=== PATIENT | male | born 1955 | race Caucasian/White ===

== ENCOUNTER 2018-09-27 08:49 | Inpatient (IN) | payer MEDICARE ==
[~2018-09-27] VITALS: Ht 175.3 cm; Wt 120.2 kg
[~2018-09-27 08:49] MED LIST: HYDROCODON OR; NEXIUM40 M1 OR; OXYCODONE15 MG OR; SOMA350 MG OR
[2018-09-27 10:09] LABS: HEMATOCRIT 36.9 % (39.0-50.0); HEMOGLOBIN 12.2 g/dl (14.0-18.0); IMMATURE GRANULOCYTES 0.4 % (0.0-5.0); MEAN CELL VOLUME 103.1 fL CALC (80.0-100.0); MEAN CORPUSCULAR HGB 34.1 pG CALC (26.0-32.0); MEAN CORPUSCULAR HGB CONC 33.1 g/L CALC (32.0-36.0); NEUT# 7.1 thou/uL (1.82-7.42); RED BLOOD COUNT 3.58 mill/uL (4.70-6.10); RED CELL DISTRI WIDTH 13.2 % (11.5-15.5)
[2018-09-27] MEDS ORDERED: SYNTHROID75 MCG PO (10:12)
[2018-09-27] MEDS ORDERED: OXYCONTIN10 MG PO (10:12)
[2018-09-27] MEDS ORDERED: DEXILANT60 MG PO (10:13)
[2018-09-27] MEDS ORDERED: [UNRECOGNIZED DRUG - OTHER] PO (10:13)
[2018-09-27] MEDS ORDERED: CRESTOR5 M1 PO (10:13)
[2018-09-27] MEDS ORDERED: PROAIR HFA108 MCG/AC IN (10:14)
[2018-09-27] MEDS ORDERED: ISOSORB DIN30 MG PO (10:16)
[2018-09-27 10:21] LABS: ANION GAP 12 (6-22 (CALC)); BUN 14 mg/dL (8-23); BUN/CREATININE RATIO 17 (12-20 (CALC)); CARBON DIOXIDE 32 mmol/l (22-30); CHLORIDE 95 mmol/l (95-108); CREATININE 0.8 mg/dL (0.7-1.3); GFR > 60 ML/MIN (>=60 (CALC)); GFR FOR AFR.AMER. > 60 ML/MIN (>=60 (CALC)); POTASSIUM 4.2 mmol/l (3.5-5.1); SODIUM 135 mmol/l (137-146)
[2018-09-27 12:31] VITALS: BP 143/93
[2018-09-27 15:35] VITALS: BP 125/87
[2018-09-27 15:51] LABS: URINE BILIRUBIN - DIPSTICK NEGATIVE (NEGATIVE); URINE BLOOD DIPSTICK NEGATIVE (NEGATIVE); URINE COLOR YELLOW; URINE GLUCOSE - DIPSTICK NEGATIVE (NEGATIVE); URINE KETONE NEGATIVE (NEGATIVE); URINE LEUK ESTERASE NEGATIVE (NEGATIVE); URINE NITRITE - DIPSTICK NEGATIVE (Negative); URINE PH 5.5 (4.5-8.0); URINE PROTEIN - DIPSTICK NEGATIVE (NEG-TRACE); URINE UROBILINOGEN - DIPSTICK 0.2 E.U./dL (0.2)
[2018-09-27 16:05] LABS: URINE CLARITY CLEAR
[2018-09-27 20:00] VITALS: BP 117/76
[2018-09-27 23:59] VITALS: BP 127/64
[2018-09-28] VITALS (7 sets, daily range): BP systolic 99–136; BP diastolic 61–90
[2018-09-29 04:14] VITALS: BP 123/69
[2018-09-29 05:29] LABS: HEMATOCRIT 37.4 % (39.0-50.0); HEMOGLOBIN 12.2 g/dl (14.0-18.0); IMMATURE GRANULOCYTES 0.8 % (0.0-5.0); MEAN CELL VOLUME 105.1 fL CALC (80.0-100.0); MEAN CORPUSCULAR HGB 34.3 pG CALC (26.0-32.0); MEAN CORPUSCULAR HGB CONC 32.6 g/L CALC (32.0-36.0); NEUT# 14.64 thou/uL (1.82-7.42); RED BLOOD COUNT 3.56 mill/uL (4.70-6.10); RED CELL DISTRI WIDTH 13.7 % (11.5-15.5)
[2018-09-29 05:39] LABS: ALBUMIN 3.6 g/dL (3.2-5.0); ALKALINE PHOSPHATASE 106 u/l (38-126); ANION GAP 16 (6-22 (CALC)); BILIRUBIN, TOTAL 0.4 mg/dL (0.0-1.4); BUN 24 mg/dL (8-23); BUN/CREATININE RATIO 25 (12-20 (CALC)); CARBON DIOXIDE 29 mmol/l (22-30); CHLORIDE 99 mmol/l (95-108); GFR > 60 ML/MIN (>=60 (CALC)); GFR FOR AFR.AMER. > 60 ML/MIN (>=60 (CALC)); MAGNESIUM 2.1 mg/dL (1.6-2.3); POTASSIUM 4.8 mmol/l (3.5-5.1); SGOT/AST 31 u/l (19-48); SODIUM 139 mmol/l (137-146); TOTAL PROTEIN 7.3 g/dL (6.3-8.2)
[2018-09-29 08:00] VITALS: BP 134/69
[2018-09-29 11:30] VITALS: BP 120/72
[2018-09-29 15:47] VITALS: BP 136/65
[2018-09-29 20:03] VITALS: BP 124/63
[2018-09-30 00:13] VITALS: BP 140/76
[2018-09-30 05:22] VITALS: BP 119/65
[2018-09-30 05:43] LABS: HEMATOCRIT 36.9 % (39.0-50.0); HEMOGLOBIN 11.8 g/dl (14.0-18.0); IMMATURE GRANULOCYTES 0.9 % (0.0-5.0); MEAN CELL VOLUME 105.7 fL CALC (80.0-100.0); MEAN CORPUSCULAR HGB 33.8 pG CALC (26.0-32.0); NEUT# 10.79 thou/uL (1.82-7.42); RED BLOOD COUNT 3.49 mill/uL (4.70-6.10); RED CELL DISTRI WIDTH 13.7 % (11.5-15.5)
[2018-09-30 06:01] LABS: ALBUMIN 3.4 g/dL (3.2-5.0); ALKALINE PHOSPHATASE 98 u/l (38-126); ANION GAP 14 (6-22 (CALC)); BILIRUBIN, TOTAL 0.5 mg/dL (0.0-1.4); BUN 21 mg/dL (8-23); BUN/CREATININE RATIO 27 (12-20 (CALC)); CARBON DIOXIDE 31 mmol/l (22-30); CHLORIDE 98 mmol/l (95-108); CREATININE 0.8 mg/dL (0.7-1.3); GFR > 60 ML/MIN (>=60 (CALC)); GFR FOR AFR.AMER. > 60 ML/MIN (>=60 (CALC)); MAGNESIUM 2.2 mg/dL (1.6-2.3); POTASSIUM 5.1 mmol/l (3.5-5.1); SGOT/AST 41 u/l (19-48); SODIUM 138 mmol/l (137-146)
[2018-09-30 08:06] VITALS: BP 140/85
[2018-09-30 11:30] VITALS: BP 103/60
[2018-09-30 15:15] VITALS: BP 107/78
[2018-09-30 19:40] VITALS: BP 127/75
[2018-10-01 00:26] VITALS: BP 114/69
[2018-10-01 04:42] VITALS: BP 129/75
[2018-10-01 05:42] LABS: HEMATOCRIT 37.2 % (39.0-50.0); HEMOGLOBIN 12.3 g/dl (14.0-18.0); IMMATURE GRANULOCYTES 1.3 % (0.0-5.0); MEAN CELL VOLUME 104.2 fL CALC (80.0-100.0); MEAN CORPUSCULAR HGB 34.5 pG CALC (26.0-32.0); MEAN CORPUSCULAR HGB CONC 33.1 g/L CALC (32.0-36.0); NEUT# 9.31 thou/uL (1.82-7.42); RED BLOOD COUNT 3.57 mill/uL (4.70-6.10); RED CELL DISTRI WIDTH 13.6 % (11.5-15.5)
[2018-10-01 05:59] LABS: ALBUMIN 3.4 g/dL (3.2-5.0); ALKALINE PHOSPHATASE 99 u/l (38-126); ANION GAP 14 (6-22 (CALC)); BILIRUBIN, TOTAL 0.5 mg/dL (0.0-1.4); BUN 22 mg/dL (8-23); BUN/CREATININE RATIO 26 (12-20 (CALC)); CARBON DIOXIDE 31 mmol/l (22-30); CHLORIDE 97 mmol/l (95-108); CREATININE 0.8 mg/dL (0.7-1.3); GFR > 60 ML/MIN (>=60 (CALC)); GFR FOR AFR.AMER. > 60 ML/MIN (>=60 (CALC)); MAGNESIUM 2.4 mg/dL (1.6-2.3); POTASSIUM 5.1 mmol/l (3.5-5.1); SGOT/AST 40 u/l (19-48); SODIUM 137 mmol/l (137-146); TOTAL PROTEIN 6.9 g/dL (6.3-8.2)
[2018-10-01 07:39] VITALS: BP 134/80
[2018-10-01 11:35] VITALS: BP 127/77
[2018-10-01 16:12] VITALS: BP 133/79
[2018-10-01 19:20] VITALS: BP 144/90
[2018-10-02 00:30] VITALS: BP 119/62
[2018-10-02 04:35] VITALS: BP 123/72
[2018-10-02 05:41] LABS: HEMATOCRIT 37.4 % (39.0-50.0); HEMOGLOBIN 12.4 g/dl (14.0-18.0); IMMATURE GRANULOCYTES 1.6 % (0.0-5.0); MEAN CELL VOLUME 103.6 fL CALC (80.0-100.0); MEAN CORPUSCULAR HGB 34.3 pG CALC (26.0-32.0); MEAN CORPUSCULAR HGB CONC 33.2 g/L CALC (32.0-36.0); NEUT# 8.38 thou/uL (1.82-7.42); RED BLOOD COUNT 3.61 mill/uL (4.70-6.10); RED CELL DISTRI WIDTH 13.8 % (11.5-15.5)
[2018-10-02 06:37] LABS: ALBUMIN 3.3 g/dL (3.2-5.0); ALKALINE PHOSPHATASE 91 u/l (38-126); ANION GAP 11 (6-22 (CALC)); BILIRUBIN, TOTAL 0.5 mg/dL (0.0-1.4); BUN 23 mg/dL (8-23); BUN/CREATININE RATIO 25 (12-20 (CALC)); CARBON DIOXIDE 34 mmol/l (22-30); CHLORIDE 96 mmol/l (95-108); CREATININE 0.9 mg/dL (0.7-1.3); GFR > 60 ML/MIN (>=60 (CALC)); GFR FOR AFR.AMER. > 60 ML/MIN (>=60 (CALC)); MAGNESIUM 2.4 mg/dL (1.6-2.3); POTASSIUM 5.1 mmol/l (3.5-5.1); SGOT/AST 31 u/l (19-48); SODIUM 136 mmol/l (137-146); TOTAL PROTEIN 6.7 g/dL (6.3-8.2)
[2018-10-02 08:18] VITALS: BP 120/83
[2018-10-02 11:17] VITALS: BP 130/81
[2018-10-02 15:34] VITALS: BP 139/75
[2018-10-02 19:14] VITALS: BP 121/78
[2018-10-03 00:21] VITALS: BP 135/83
[2018-10-03 04:38] VITALS: BP 100/59
[2018-10-03 07:43] VITALS: BP 119/75
[2018-10-03 11:15] VITALS: BP 110/71
[2018-10-03 16:40] VITALS: BP 105/68
[2018-10-03 20:05] VITALS: BP 99/71
[2018-10-04] VITALS (7 sets, daily range): BP systolic 83–116; BP diastolic 42–73
[2018-10-05 05:04] VITALS: BP 100/56
[2018-10-05 05:39] LABS: ANION GAP 10 (6-22 (CALC)); BUN 20 mg/dL (8-23); BUN/CREATININE RATIO 22 (12-20 (CALC)); CARBON DIOXIDE 34 mmol/l (22-30); CHLORIDE 98 mmol/l (95-108); CREATININE 0.9 mg/dL (0.7-1.3); GFR > 60 ML/MIN (>=60 (CALC)); GFR FOR AFR.AMER. > 60 ML/MIN (>=60 (CALC)); POTASSIUM 4.1 mmol/l (3.5-5.1); SODIUM 138 mmol/l (137-146)
[2018-10-05 05:40] LABS: HEMATOCRIT 35.2 % (39.0-50.0); HEMOGLOBIN 11.2 g/dl (14.0-18.0); IMMATURE GRANULOCYTES 1.2 % (0.0-5.0); MEAN CELL VOLUME 107.3 fL CALC (80.0-100.0); MEAN CORPUSCULAR HGB 34.1 pG CALC (26.0-32.0); MEAN CORPUSCULAR HGB CONC 31.8 g/L CALC (32.0-36.0); NEUT# 5.94 thou/uL (1.82-7.42); RED BLOOD COUNT 3.28 mill/uL (4.70-6.10); RED CELL DISTRI WIDTH 14.3 % (11.5-15.5)
[2018-10-05 07:33] VITALS: BP 111/72
[2018-10-05 11:17] VITALS: BP 101/66
[2018-10-05 15:21] VITALS: BP 98/62
[2018-10-05 20:00] VITALS: BP 108/65
[2018-10-05 23:30] VITALS: BP 99/63
[2018-10-06 04:10] VITALS: BP 126/78
[2018-10-06 07:40] VITALS: BP 107/76
[2018-10-06 11:00] VITALS: BP 106/65
[2018-10-06] MEDS ORDERED: PREDNISONE20 MG PO (12:47)
[2018-10-06 15:20] VITALS: BP 116/80
[2018-10-06] MEDS ORDERED: HYDROCO/APAP1 T13 PO (15:48)
[2018-10-06] MEDS ORDERED: OXYCOD/APAP1 TA4 PO (15:48)
== END 2018-10-06 21:00 | DRG 193 ==
LOC: ED 08:49 → ED-I 10:50 → ED 11:02 → MS2 11:03
PROVIDERS: Family Medicine; Internal Medicine; Internal Medicine Nephrology; ADMIT Internal Medicine; ATTEND Internal Medicine
PROC: 06HF33Z Insertion of Infusion Device into Right External Iliac Vein, Percutaneous Approach (ICD-10-PCS; principal; 2018-09-27)
DX: J18.9 Pneumonia, unspecified organism (principal); J96.21 Acute and chronic respiratory failure with hypoxia; J96.22 Acute and chronic respiratory failure with hypercapnia; J44.0 Chronic obstructive pulmonary disease with (acute) lower respiratory infection; J44.1 Chronic obstructive pulmonary disease with (acute) exacerbation; J84.10 Pulmonary fibrosis, unspecified; J98.6 Disorders of diaphragm; I10 Essential (primary) hypertension; E03.9 Hypothyroidism, unspecified; G89.29 Other chronic pain; E66.9 Obesity, unspecified; Z68.39 Body mass index [BMI] 39.0-39.9, adult; Z87.891 Personal history of nicotine dependence